=== PATIENT | male | born 1965 | race Caucasian/White ===

== ENCOUNTER 2021-02-13 12:07 | Day surgery (SDC) | payer OTHER ==
[~2021-02-13] VITALS: Ht 182.9 cm; Wt 74.4 kg
--- NOTE | ~2021-02-13 | OR ---
[facility] [address] [place], [place] [address] Draft DATE OF OPERATION: 02/13/2021 SURGEON: Maggie Block MD PREOPERATIVE DIAGNOSES: 1. History of polyp in 2017 (hyperplastic). 2. Family history of Villasenor syndrome (father (patient untested)). POSTOPERATIVE DIAGNOSIS: Small polyp, transverse colon (excised). PROCEDURE: Total colonoscopy to cecum with cold snare polypectomy x1. ANESTHESIA: Intravenous sedation, fentanyl 150 mcg and Versed 5 mg. INDICATIONS: This 55-year-old white man is a patient of Dr. Johnson. He is known to me from the past, having undergone colonoscopy in 2017, where he had excised a hyperplastic polyp. The patient reveals to me recently (and certainly never before) that his father was considered to have Villasenor syndrome. He does have extensive family history of colon cancer actually in his maternal side including a maternal aunt, a maternal uncle and another maternal relative, who had uterine cancer. The patient has never been tested for Villasenor syndrome. He is here for surveillance colonoscopy on the basis of his prior polyp. He understands the risks of bleeding, infection, and perforation. FINDINGS: The prep was excellent. Complete colonoscopy was undertaken to the cecum. There appeared to be endoscopic tattoo in the right colon from prior polypectomy possibly. Alternatively, intense transillumination of the hepatic parenchyma may have been possible. He did have a small linear sessile polyp of the transverse colon, which was excised with cold snare polypectomy technique. The remaining colon was normal. DESCRIPTION OF PROCEDURE: The patient was brought to the endoscopy suite and placed in lateral decubitus position, given intravenous sedation to the point of slurred speech and nystagmus. Digital rectal examination was normal. Prostate was normal. PATIENT NAME: KENDALL SHAVER OPERATIVE REPORT DATE OF : 67 REPORT #: [id number] PHYSICIAN: MAGGIE BLOCK MD PCP: ALAN DUGGAN MD REPORT IS CONFIDENTIAL AND NOT TO BE RELEASED WITHOUT AUTHORIZATION [facility] [address] [place], [place] [address] Draft An Olympus video colonoscope was passed into the rectum and manipulated throughout the colon, ultimately passing the hepatic flexure with his characteristic blue landmark and ultimately into the right colon. Further advancement of the scope with abdominal wall support showed intensely blue mucosa in the proximal ascending colon, likely suggestive of prior endoscopic tattoo. The scope was passed into the cecum. The appendiceal orifice was identified. Abdominal wall palpation confirmed right lower quadrant position of the scope. The scope was then withdrawn from that point and examination undertaken. In the mid to left transverse colon, there was a small sessile linear polyp, this was excised with cold snare technique. Specimen passed for pathology. Further withdrawal of scope showed no other abnormality. Retroflexed view in the rectum showed hypertrophied anal papilla. The scope was straightened and withdrawn and removed. The patient taken to the recovery room in good condition. CONCLUDING DIAGNOSIS: 1. Small polyp of colon, uncertain type. 2. High risk for Villasenor syndrome based on family history (father); additional family history of colon cancer on the maternal side as well. PLAN: We will attempt to provide for testing for Villasenor syndrome by obtaining MLH1, MSH2, MSH6, PMS2, and HEPACAM genes. This will better characterize his vulnerability to Villasenor syndrome himself and will certainly guide surveillance for genetically related cancer to Villasenor syndrome including colon cancer. He will see us back in approximately eight weeks and we will review his pathology and his situation. MD REJI Hare/MODL /[id number] cc: Darian Johnson MD Copies: DARIAN JOHNSON MD PATIENT NAME: KENDALL SHAVER OPERATIVE REPORT DATE OF : 67 REPORT #: [id number] PHYSICIAN: MAGGIE BLOCK MD PCP: ALAN DUGGAN MD REPORT IS CONFIDENTIAL AND NOT TO BE RELEASED WITHOUT AUTHORIZATION [facility] [address] [place] [id number] Draft ~ PATIENT NAME: KENDALL SHAVER OPERATIVE REPORT DATE OF : 67 REPORT #: [id number] PHYSICIAN: MAGGIE BLOCK MD PCP: ALAN DUGGAN MD REPORT IS CONFIDENTIAL AND NOT TO BE RELEASED WITHOUT AUTHORIZATION
[~2021-02-13 12:07] MED LIST: MOTRIN IB200 MG PO; MULTIVITAMINS1 EAC7 PO; OXYCODON-ACETA1 EAC2 PO
--- NOTE | 2021-02-13 13:50 | NUR ---
02/13/21 1350 Rosalina Brizuela 1342 PT ARRIVED IN PACU AWAKE WITH NO C/O'S. ABD SOFT.
--- NOTE | 2021-02-15 16:52 | PATH ---
[facility] [address] [place], [place] [address] Signed SPECIMEN(S): A HEPATIC FLEXURE POLYP SPECIMEN SOURCE: A. HEPATIC FLEXURE POLYP CLINICAL HISTORY: Pre: Surveillance, hx of polyps. Family hx: Villasenor syndrome. Post: Polyp x 1. MICROSCOPIC DESCRIPTION: Histologic sections of all submitted blocks are examined by light microscopy. These findings, together with the gross examination, support the pathologic diagnosis. FINAL PATHOLOGIC DIAGNOSIS: Hepatic flexure polyp: - Tubular adenoma. JVR:[id number] GROSS DESCRIPTION: The specimen, labeled "PC, hepatic flexure polyp," is received in formalin and consists of one brady soft tissue fragment(s) that measure 0.6 cm in greatest dimension. The specimen is entirely submitted in cassette (A1). JS (under the direct supervision of a pathologist) The Gross Description was prepared using a voice recognition system. The report was reviewed for accuracy; however, sound-alike word errors, addition and/or deletions may occur. If there is any question about this report, please contact Client Services. PERFORMING LABORATORY: The technical component was performed by [facility], [address] [place] [address] (Hospital Admissions Clerk: Alexa Norman MD; CLIA# [id number]). Professional [place] [address]. Diagnostician: Ryan Aiken MD Pathologist Electronically Signed 02/15/2021 Copies: PATIENT NAME: KENDALL SHAVER PATHOLOGY DATE OF : 67 REPORT #: [id number] PHYSICIAN: FIDELINA PATHOLOGY PCP: ALAN DUGGAN MD REPORT IS CONFIDENTIAL AND NOT TO BE RELEASED WITHOUT AUTHORIZATION [address] [place], [place] [address] Signed ~ PATIENT NAME: KENDALL SHAVER PATHOLOGY DATE OF : 67 REPORT #: [id number] PHYSICIAN: FIDELINA PATHOLOGY PCP: ALAN DUGGAN MD REPORT IS CONFIDENTIAL AND NOT TO BE RELEASED WITHOUT AUTHORIZATION
== END 2021-02-13 14:20 | disposition home or self-care (01) ==
LOC: OPS 12:07 → DS 12:07 → OPS 13:00
PROVIDERS: ATTEND Surgery
PROC: 0DBL8ZX Excision of Transverse Colon, Via Natural or Artificial Opening Endoscopic, Diagnostic (ICD-10-PCS; principal; 2021-02-13 13:00)
DX: Z12.11 Encounter for screening for malignant neoplasm of colon (principal); D12.3 Benign neoplasm of transverse colon; Z87.19 Personal history of other diseases of the digestive system; Z80.0 Family history of malignant neoplasm of digestive organs; Z84.81 Family history of carrier of genetic disease; Z88.0 Allergy status to penicillin
CPT/HCPCS: 99153; G0500; J2250; J3010; J7121

== ENCOUNTER 2024-07-16 07:00 | Day surgery (SDC) | payer OTHER ==
[~2024-07-16] VITALS: Ht 182.9 cm; Wt 79.5 kg
[~2024-07-16 07:00] MED LIST changes: +IBLOOD GLUCOSE TEST STRIP 1 EA TEST VI PRN; +LACTATED RINGER'S 1,000 ML IV SCH; +LIDOCAINE HCL 1% 5 ML SDV INJ ONE; +MIDAZOLAM HCL 5 MG/5 ML VIAL IV PRN; +VITAMIN B12500 MCG PO; +[UNRECOGNIZED DRUG - OTHER] PO; +fentaNYL citrate 100 MCG/2 ML VIAL IV PRN
[2024-07-16 07:18] VITALS: BP 153/87
[2024-07-16] MEDS ORDERED: GARLIC100 MG PO (07:19)
[2024-07-16] MEDS ORDERED: TURMERIC500 M3 PO (07:20)
--- NOTE | 2024-07-16 07:32 | NUR ---
PT NOT AVAILABLE FOR VISIT. PROVIDED PRAYER.
--- NOTE | 2024-07-16 07:46 | NUR ---
VISITED DURING SPIRITUAL CARE ROUNDS. PT SUPPORTED BY FAMILY MEMBER IN ROOM; STRONG RELATIONAL RESOURCES EXHIBITED, NO SIGNS OF ANXIETY PRESENT. [employer] PROVIDED SUPPORTIVE PRESENCE, FACILITATED INTERACTION WITH THERAPY ANIMAL, PROVIDED HOSPITALITY, PRAYER. PT AND FAMILY MEMBER EXPRESSED GRATITUDE.
[2024-07-16] MEDS ORDERED: fentaNYL citrate 100 MCG/2 ML VIAL ONE (08:03)
[2024-07-16] MEDS ORDERED: MIDAZOLAM HCL 5 MG/5 ML VIAL ONE (08:03)
--- NOTE | 2024-07-16 09:02 | NUR ---
07/16/24 0902 Hilda Garcia 0851- PT ARRIVES TO PACU, LEFT LATERAL SEMI MICHAEL POSITION. PT AWAKE BUT DROWSY. DENIES PAIN OR NAUSEA. ABD SOFT, NON DISTENDED. ENCOURAGED TO PASS GAS. LR INFUSING TO RH IV. NO SIGNS OF DISTRESS. ALL MONITORS IN PLACE. 0858- PT RESTING INTERMITTENTLY. WAKES EASILY TO VERBAL STIMULI.
[2024-07-16 09:16] VITALS: BP 112/68
--- NOTE | 2024-07-16 19:04 | OR ---
[facility] [address] [place], [place] [address] Signed DATE OF OPERATION: 07/16/2024 SURGEON: Maggie Block MD PREOPERATIVE DIAGNOSIS: History of tubular adenoma 2020; family history of Villasenor syndrome (father, (patient untested). POSTOPERATIVE DIAGNOSIS: Small polyp of sigmoid. PROCEDURE: Total colonoscopy to cecum with cold morcellation polypectomy x1. ANESTHESIA: Intravenous sedation, fentanyl 150 mcg and Versed 5 mg. INDICATIONS: This 58-year-old white man is a patient Dr. Darian Adams. In 2020, he underwent colonoscopy and was found to have a tubular adenoma resected by cold snare technique in the transverse colon. It is noted that his father is considered to have Villasenor syndrome. The patient himself has not had testing for this. I do know of a family member (his grandmother) who had colon cancer, which I treated a number of years ago. He is admitted at this time to undergo colonoscopy for surveillance regarding the polyp. He understands the risk of bleeding, infection, and perforation. FINDINGS: The prep was excellent. Complete colonoscopy was undertaken to the cecum with full intubation of the cecum. Endomark tattoo dye was noted in the right transverse colon area from prior polypectomy. There was no sign of residual polyp there. A small polyp was noted of the sigmoid, which was excised. The remaining colon and rectum was normal. DESCRIPTION OF PROCEDURE: The patient was brought to the endoscopy suite and placed in lateral decubitus position given intravenous sedation to the point of slurred speech and nystagmus. Digital rectal examination was normal. An Olympus video colonoscope was passed in the rectum and manipulated throughout the colon ultimately intubating the cecum itself. The ileocecal valve and appendiceal orifice were normal. The scope was withdrawn and examination undertaken showing what Electronically Signed By: MAGGIE BLOCK MD 07/16/24 1904 PATIENT NAME: KENDALL SHAVER OPERATIVE REPORT DATE OF : 67 REPORT #: [id number] PHYSICIAN: MAGGIE BLOCK MD PCP: DARIAN ADAMS MD REPORT IS CONFIDENTIAL AND NOT TO BE RELEASED WITHOUT AUTHORIZATION [facility] [address] [place], [place] [address] Signed appeared to be Endomark tattoo dye in the region of the right transverse colon. Further withdrawal of scope showed no abnormality into the sigmoid where a small polyp was noted, this was excised with a cold morcellation technique completely. Further withdrawal out for retroflexed view of the rectum, which was normal. Scope was straightened, withdrawn and removed and the patient was taken to the recovery room in good condition. CONCLUDING DIAGNOSIS: Polyps x1. PLAN: We would recommend repeat colonoscopy in three years. I will try to initiate Villasenor testing for him, specifically the genetic test including genes MLH1, MSH2, MSH6, PMS2 and EPCAM and for those results to his primary physician Dr. Adams. If he is positive for Villasenor syndrome genetic risk, colonoscopy would be recommended every 1-2 years. MD REJI Hare/KARYN /[id number] cc: Darian Adams MD Copies: DARIAN ADAMS MD ~ Electronically Signed By: MAGGIE BLOCK MD 07/16/24 1904 PATIENT NAME: KENDALL SHAVER OPERATIVE REPORT DATE OF : 67 REPORT #: [id number] PHYSICIAN: MAGGIE BLOCK MD PCP: DARIAN ADAMS MD REPORT IS CONFIDENTIAL AND NOT TO BE RELEASED WITHOUT AUTHORIZATION
== END 2024-07-16 09:30 | disposition home or self-care (01) ==
LOC: DS 07:00 → OPS 07:00 → DS 14:00
PROVIDERS: ATTEND Surgery
PROC: 0DBE8ZX Excision of Large Intestine, Via Natural or Artificial Opening Endoscopic, Diagnostic (ICD-10-PCS; principal; 2024-07-16 08:45)
DX: Z12.11 Encounter for screening for malignant neoplasm of colon (principal); K63.5 Polyp of colon; Z86.010 Personal history of colon polyps; K40.90 Unilateral inguinal hernia, without obstruction or gangrene, not specified as recurrent; Z84.81 Family history of carrier of genetic disease; Z88.0 Allergy status to penicillin; Z79.899 Other long term (current) drug therapy
CPT/HCPCS: 99153; G0500; J2250; J3010; J7121